=== PATIENT | female | born 1965 | race Two or more races ===

== ENCOUNTER 2024-02-10 21:08 | Emergency (ER) | payer OTHER ==
[2024-02-10 21:25] VITALS: BP 129/65; PULSE 95; RESP 18; TEMP 98.5; BMI 30.9
[2024-02-10] MEDS ORDERED: ONDANSETRON 4 MG/2 ML VIAL ONE (21:38)
[2024-02-10] MEDS ORDERED: PANTOPRAZOLE SODIUM 40 MG VIAL ONE (21:39)
[2024-02-10 22:04] LABS: HEMATOCRIT 32.9 % (32.4-45.2); HEMOGLOBIN 10.5 G/dL (10.7-15.3); MCHC 31.9 g/dl (32.0-36.0); MEAN CELL VOLUME 84.7 fl (80-96); MEAN PLT VOLUME 9.4 fl (7.5-11.1); PLATELET COUNT 165.1 10^3/uL (134-434); RBC 3.88 10^6/uL (3.60-5.2); RDW 15.2 % (11.6-15.6); WHITE BLOOD COUNT 8.6 10^3/uL (4.0-10.8)
[2024-02-10] MEDS: ONDANSETRON 4 MG/2 ML VIAL IVPUSH ONE (22:09)
[2024-02-10] MEDS: SODIUM CHLORIDE 1,000 ML IV ONE (22:09)
[2024-02-10] MEDS: PANTOPRAZOLE SODIUM 40 MG VIAL IVPUSH ONE (22:09)
[2024-02-10 22:15] LABS: EPITHELIAL CELLS 0-5 /hpf
[2024-02-10 22:24] LABS: ALBUMIN 3.7 g/dl (3.4-5.0); BILIRUBIN,TOTAL 0.3 mg/dl (0.2-1); CALCIUM 9.5 mg/dl (8.5-10.1); CREATININE 1.5 mg/dl (0.6-1.3); MAGNESIUM 2.1 mg/dL (1.8-2.4); PHOSPHOROUS 3.2 (2.5-4.9); POTASSIUM 4.8 mmol/L (3.5-5.1); TOT PROT 6.5 g/dl (6.4-8.2)
[2024-02-10] MEDS ORDERED: IBUPROFEN 400 MG TABLET (FP) PO ONE (22:49)
[2024-02-10] MEDS: IBUPROFEN 400 MG TABLET (FP) PO ONE (22:51)
[2024-02-10] MEDS: morphine CARPU-JECT 2 MG/1 ML DISP.SYRIN IVPUSH ONE (23:20)
== END 2024-02-11 00:21 | disposition home or self-care (01) ==
LOC: FER 21:08
PROC: 3E033GC Introduction of Other Therapeutic Substance into Peripheral Vein, Percutaneous Approach (ICD-10-PCS; principal; 2024-02-10)
PROC: 3E033NZ Introduction of Analgesics, Hypnotics, Sedatives into Peripheral Vein, Percutaneous Approach (ICD-10-PCS; 2024-02-10)
PROC: 3E033GC Introduction of Other Therapeutic Substance into Peripheral Vein, Percutaneous Approach (ICD-10-PCS; 2024-02-10)
PROC: 3E033GC Introduction of Other Therapeutic Substance into Peripheral Vein, Percutaneous Approach (ICD-10-PCS; 2024-02-10)
PROC: 3E0337Z Introduction of Electrolytic and Water Balance Substance into Peripheral Vein, Percutaneous Approach (ICD-10-PCS; 2024-02-10)
DX: K52.9 Noninfective gastroenteritis and colitis, unspecified (principal); R10.13 Epigastric pain; R11.0 Nausea
CPT/HCPCS: 36415; 74176-TC; 80053; 81003; 81015; 82550; 83605; 83690; 83735; 84100; 84484; 85027; 93005; 99285-25